=== PATIENT | female | born 1985 | race Caucasian/White ===

== ENCOUNTER 2018-06-11 22:50 | Inpatient (IN) | payer OTHER ==
[~2018-06-11] VITALS: Ht 147.3 cm; Wt 81.5 kg
[~2018-06-11 22:50] MED LIST: CEPH-443 PO
[2018-06-11] MEDS ORDERED: LACTATED RINGER'S 1,000 ML IV PRN (23:32)
[2018-06-11 23:41] VITALS: BP 147/85; PULSE 96; RESP 16
[2018-06-11] MEDS: LACTATED RINGER'S 1,000 ML IV SCH (23:50)
[2018-06-12] MEDS ORDERED: BUTORPHANOL 1 MG INJ IV PRN
[2018-06-12] MEDS ORDERED: BUTORPHANOL 2 MG INJ IV PRN
[2018-06-12] MEDS ORDERED: LIDOCAINE 1% (MPF) 30 ML INJ INJ PRN
[2018-06-12] MEDS ORDERED: AMPICILLIN 2 GM/NS (PMX) 100 ML IV ONE
[2018-06-12] MEDS ORDERED: OXYTOCIN 30 UNITS/LR 500 ML IV SCH ×2
[2018-06-12] MEDS ORDERED: IBUPROFEN 600 MG TAB PO PRN
[2018-06-12] MEDS: LACTATED RINGER'S 1,000 ML IV SCH ×3 (00:44→18:46)
--- NOTE | 2018-06-12 01:46 | TRIAGE ---
OB Triage Datetime Report Generated by CPN: 06/12/2018 01:46 Datetime: 06/12/2018 00:58 Assessment Type: Admission Assessment Maternal Assessment Level of Consciousness: Fully Conscious DTR's/Clonus: DTRs 2+; No Clonus Headache: Denies Blurred Vision: No Respiratory Effort: Unlabored; Regular Rhythm; Equal Expansion Breath Sounds, Left: Clear and Equal Breath Sounds, Right: Clear and Equal Nausea/Vomiting: Denies RUQ Epigastric Pain: Denies Facial Edema: None Fall Risk Assessment History of Falling: (0) No Secondary Diagnosis: (0) No Ambulatory Aid: (0) Bedrest/Nurse Assist Gait: (0) Normal/Bedrest/Immobile Mental Status: (0) Oriented to Own Ability Datetime: 06/12/2018 00:45 Labor Evaluation Frequency: OCCASIONAL Monitor Mode: External Quality: Mild Pattern: Normal: <= 5 Contractions in 10 Minutes Resting Tone [place]: Relaxed Heart Rate FHR Baseline Rate: 145 Monitor Mode: External US FHR Baseline Changes: No Baseline Change Variability: Moderate 6-25 bpm Accelerations: 15X15 Decelerations: None Category: Category I Datetime: 06/11/2018 23:40 Stage of : OB Triage Monitor Mode: External Quality: Mild Pattern: Normal: <= 5 Contractions in 10 Minutes Resting Tone [place]: Relaxed Heart Rate FHR Baseline Rate: 150 Monitor Mode: External US FHR Baseline Changes: No Baseline Change Variability: Moderate 6-25 bpm Accelerations: 15X15 Decelerations: None Category: Category I Datetime: 06/11/2018 23:39 EGA: 38.4 Datetime: 06/11/2018 23:30 Stage of : OB Triage Time of Arrival: 06/11/2018 22:45 Arrived By: Wheelchair Arrived From: Home Chief Complaint: c/o srom at 2215 and irre ucs Movement: Present Contractions: Irregular Time Contractions Began: 06/11/2018 22:15 Contractions: Q5-10 Rupture of Membranes: Ruptured Vaginal Bleeding: None Vaginal Discharge: Present Recent Sexual Intercouse: Denies Abdominal Trauma: Not Applicable Patient Complaints: Contractions Time Provider Notified: 06/11/2018 23:40 Provider Notified: Dr Cantor Initial Plan: EFM,SVE Labor Evaluation Frequency: 5-8 Monitor Mode: External Quality: Mild Pattern: Normal: <= 5 Contractions in 10 Minutes Resting Tone [place]: Relaxed Heart Rate FHR Baseline Rate: 155 Monitor Mode: External US FHR Baseline Changes: No Baseline Change Variability: Moderate 6-25 bpm Accelerations: 15X15 Decelerations: None Category: Category I Vaginal Exam Dilatation (cms): 0.0 Effacement (%): 40 Station: -4 Exam By: Dillon Russell Membrane Status: Ruptured Membranes Rupture Method: Spontaneous Amniotic Fluid Color: Clear Amniotic Fluid Amount: Moderate Amniotic Fluid Odor: Normal Vaginal Bleeding: None Pool: Positive Nitrazine: Positive Cervix, Consistency: Soft Cervix, Position: Midposition Presentation 'A': Unable to Assess Datetime: 06/11/2018 23:04 Stage of : OB Triage Maternal Assessment Level of Consciousness: Fully Conscious DTR's/Clonus: DTRs 2+; No Clonus Headache: Denies Blurred Vision: No Respiratory Effort: Unlabored Nausea/Vomiting: Denies RUQ Epigastric Pain: Denies Facial Edema: None Monitor Mode: External Resting Tone [place]: Relaxed Heart Rate FHR Baseline Rate: 160 Monitor Mode: External US Pain Assessment Pain Scale: 5 Pain Presence: Intermittent Pain Type: Cramping Pain Location: Abdomen
[2018-06-12] MEDS ORDERED: MISOPROSTOL 50 MCG CAPSULE PO SCH (02:00)
--- NOTE | 2018-06-12 02:25 | HP ---
Date/Time of Note Date/Time of Note DATE: 06/12/18 TIME: 02:17 OB - History Hx of Present Free Text/Dictation 32 years old 012 with single intrauterine at 38 weeks and 5 days with a YUNIOR of 06/26/2018 complaining of possible leakage of fluid at 22:15 last night. She states good movement. She denies nausea, vomiting, shortness of breath, chest pain, headache, visual changes, vaginal bleeding. Chief Complaint: Possible leakage of fluid Estimated Due Date: Jun 26, 2018 : 4 Para: 2 Spontaneous : 1 Therapeutic : 0 Care: Good Care Ultrasounds: Normal mid trimester US Obstetrical Complications: None Medical Complications: None Past Family/Social History * Past Medical, Surgical, Family and Obstetric Histories reviewed which are unremarkable GBS Status: Negative OB Admission Exam Vital Signs Vital Signs Vital Signs Date Temp Pulse Resp B/P (MAP) Pulse Ox O2 O2 Flow FiO2 Time Delivery Rate 06/11/18 98.0 96 16 147/85 Room Air 23:41 (105) Physical Exam HEENT: WNL Heart: Rhythm Normal Lungs: Clear Abdomen: WNL Extremities: Normal Cervical Dilatation: None Effacement: 0% Station: -3 Membranes: Ruptured (Speculum exam performed, gush of clear amniotic fluid seen) Amniotic Fluid: Clear Accelerations: Accelerations Present Contractions on Admission: 6-10 Minutes Apart Intensity: Mild Last 72 hours Lab Results CBC & BMP 06/11/18 23:55 Liver Function Test 06/11/18 23:55 Alanine Aminotransferase (ALT/SGPT) 11 L Albumin 3.7 Alkaline Phosphatase 184 H Aspartate Amino Transf (AST/SGOT) 20 Direct Bilirubin 0.00 Total Protein 7.5 OB Assessment/Plan Other plan: 32 years old 4 para 2012 at 38 weeks and 5 days with premature rupture of membrane - FHR: No sign of metabolic acidosis- Category I - Continuous EFM, toco - CBC, blood type and screen - Analgesia options with R/B/A discussed in detail with patient - Epidural per patient request - Cytotec 50 mg every 4 hours p.o. for max 6 doses - Please see the orders - obtain record - GBS: Negative Admission, procedures, expectations, risks and possible complications have been discussed in detail with the patient. Risk of vaginal delivery including but not limited to bleeding, infection, cervical laceration, placental retention, injury to fetus, blood transfusion, blood transfusion related infection, risk of anesthesia, adhesion, cervical laceration, episiotomy/laceration, possible delivery with risk of bleeding, infection, injury to other organs (bowel, bladder, ureter, vessels, nerves), injury to fetus, blood transfusion, blood transfusion related infection, risk of anesthesia, scar and hernia formation, needs for future , removal of uterus or any other indicated surgery discussed with the patient. She expressed understanding and repeats the risks. All of her questions were answered. She signed the informed consent. PHYSICIAN'S VERIFICATION OF INFORMED CONSENT The patient was counseled regarding the procedure, its indications, risks, potential complications and alternatives and any questions were answered. Consent was obtained. PLANNED PROCEDURE/TREATMENT: Vaginal delivery, episiotomy, repair of laceration possible delivery EDMOND NAVARRO Jun 12, 2018 02:25
[2018-06-12] MEDS ORDERED: AMPICILLIN 1 GM/NS (PMX) 50 ML IV SCH (04:00)
[2018-06-12] MEDS ORDERED: MINERAL OIL LIGHT 10 ML VIAL TOP ONE (11:30)
--- NOTE | 2018-06-12 14:39 | LDN ---
Date/Time of Note Date/Time of Note DATE: 06/12/18 TIME: 14:37 Delivery Summary of normal male with x1 relatively tight nuchal cord Weeks of Gestation 38w5d Placenta Delivered: Spontaneously Meconium: none Episiotomy: No Perineal laceration: 0 Anesthesia type: None Estimated blood loss: 200 Sponge & Needle done & correct: Yes All needle counts correct: Yes Any foreign bodies felt in the: No Infant Delivery Information Sex Sex: male Apgars 1 Minute: 8 5 Minute: 9 Suctioning Nose & mouth suctioned at rd: Yes Delee suction performed: Yes Umbilical Cord Umbilical cord with: 3 Vessels Cord presentations: nuchal cord Nuchal cord present X: 1 Cord Blood was obtained: Yes Mother & Baby Disposition Disposition Mom & Baby to Maternity; Good: Yes Mom transferred to: Other Baby to NICU: No () TITUS JAY MD Jun 12, 2018 14:39
[2018-06-12] MEDS ORDERED: MAGNESIUM SULFATE 4 GM/100 ML 100 ML IVPB ONE (15:30)
[2018-06-12] MEDS: MAGNESIUM SULFATE 20 GM/500 ML 500 ML IV SCH (15:52)
[2018-06-12 16:37] VITALS: BP 149/92; PULSE 109; RESP 16
[2018-06-12] MEDS ORDERED: ZOLPIDEM 5 MG TAB PO PRN (17:00)
[2018-06-12] MEDS ORDERED: BENZOCAINE 20% 56 ML SPRAY TOP PRN (17:00)
[2018-06-12] MEDS ORDERED: MISOPROSTOL 200 MCG TAB PR PRN ×2 (17:00)
[2018-06-12] MEDS ORDERED: METHYLERGONOVINE 0.2 MG INJ IM PRN ×2 (17:00)
[2018-06-12] MEDS ORDERED: WITCH HAZEL/GLYCERIN PAD PR PRN (17:00)
[2018-06-12] MEDS ORDERED: OXYTOCIN 30 UNITS/LR 500 ML IV PRN ×2 (17:00)
[2018-06-12] MEDS ORDERED: OXYCODONE/ASPIRIN (4.88/325) TAB PO PRN ×2 (17:00)
[2018-06-12] MEDS ORDERED: LANOLIN HPA 1 PKT TOP PRN (17:00)
[2018-06-12] MEDS ORDERED: CARBOPROST 250 MCG INJ IM PRN ×2 (17:00)
[2018-06-12] MEDS: LABETALOL 100 MG TAB PO SCH (18:00)
[2018-06-12 20:00] VITALS: BP 130/84; PULSE 108; RESP 18
[2018-06-12] MEDS: IBUPROFEN 600 MG TAB PO SCH (20:29)
[2018-06-12 21:00] VITALS: BP 122/72; PULSE 90; RESP 18
[2018-06-12 21:50] VITALS: BP 125/77; PULSE 93; RESP 18
[2018-06-12 22:20] VITALS: BP 142/69; PULSE 92; RESP 18
[2018-06-12 23:25] VITALS: BP 134/77; PULSE 94; RESP 16
[2018-06-13] VITALS (14 sets, daily range): BP systolic 121–137; BP diastolic 66–88; PULSE 80–96; RESP 16–20
[2018-06-13] MEDS: IBUPROFEN 600 MG TAB PO SCH ×4 (00:41→18:00)
[2018-06-13] MEDS: SENNA/DOCUSATE NA (8.6MG/50MG) TAB PO SCH ×3 (00:41→21:13)
[2018-06-13] MEDS: MAGNESIUM SULFATE 20 GM/500 ML 500 ML IV SCH ×3 (01:42→21:30)
[2018-06-13] MEDS: LABETALOL 100 MG TAB PO SCH ×2 (06:28→18:17)
[2018-06-13] MEDS: LACTATED RINGER'S 1,000 ML IV SCH (08:51)
--- NOTE | 2018-06-13 10:40 | PN ---
Date/Time of Note Date/Time of Note DATE: 06/13/18 TIME: 10:39 OB Subjective Subjective Subjective Patient without complaints on magnesium sulfate. OB Objective Objective Objective Gen: NAD Abd: FF OB Assessment/Plan Other Assessment: PPD1 Other plan: -BPs normal, discontinue magnesium sulfate 24 hours -continue routine care -anticipate discharge home tomorrow BALBIR TAPIA Jun 13, 2018 10:40
[2018-06-14] VITALS: BP 123/86; RESP 16
[2018-06-14 04:00] VITALS: BP 115/74; PULSE 82; RESP 16
[2018-06-14] MEDS: LABETALOL 100 MG TAB PO SCH ×2 (06:04→18:14)
[2018-06-14] MEDS: IBUPROFEN 600 MG TAB PO SCH ×4 (06:04→17:56)
[2018-06-14] MEDS: MAGNESIUM SULFATE 20 GM/500 ML 500 ML IV SCH (07:30)
[2018-06-14 08:30] VITALS: BP 137/85; PULSE 85
[2018-06-14 08:46] VITALS: BP 137/85; PULSE 85; RESP 18
[2018-06-14] MEDS ORDERED: DIPHTH/TET/ACEL PERTUSS (ADULT) 0.5 ML VIAL IM* ONE (09:00)
--- NOTE | 2018-06-14 09:01 | PD.PPDC ---
[employer] Discharge Instruction Condition [id number] Patient Condition: [id number] Fair Diet [id number] Diet: Xerek4r Resume Regular Diet Activity/Restrictions [id number] Activity: [id number] Normal Activity May Shower [id number] Restrictions: [id number] No Exercising No Lifting No Driving No Sexual Activity Nothing in the Vagina No [place] No Tampons, douche Follow-up Follow-up with Physician: 3, Week/Weeks Return to clinic for [id number] [employer] Instructions: [id number] Fever greater than 101 Chills Worsening abdominal pain Excessive Vaginal Bleeding More than 2 pads per hour Unable to tolerate diet [id number] OB Instructions: Fexon8o Breast Tenderness Depression Blurried Vision Headache PENNY SPAULDING MD Jun 14, 2018 09:01
--- NOTE | 2018-06-14 09:03 | DS ---
Date/Time of Note Date/Time of Note DATE: 06/14/18 TIME: 09:02 Obstetrical Discharge Record Final Diagnosis Final Diagnosis: Term delivered Vaginal Delivery Obstetrical Delivery: Spontaneous Condition on Discharge Physical Assessment Last Vitals: stable afebrile Voiding: Yes Bowel Movement: Yes Breast: Soft, non-tender, Filling Fundus: Firm Abdomen and Incision: soft nt Calf Tenderness: No Patient Condition: Fair PENNY SPAULDING MD Jun 14, 2018 09:03
[2018-06-14] MEDS ORDERED: INFLUENZA VIRUS VACCINE 0.5 ML (DISPENSING) IM* ONE (10:00)
[2018-06-14] MEDS: LACTATED RINGER'S 1,000 ML IV SCH (10:30)
[2018-06-14] MEDS: SENNA/DOCUSATE NA (8.6MG/50MG) TAB PO SCH (10:49)
[2018-06-14 16:00] VITALS: BP 125/81; PULSE 92; RESP 20
== END 2018-06-14 18:28 | disposition home or self-care (01) | DRG 807 ==
LOC: OBT 22:50 → L-D 22:50 → OBT 23:40 → L-D 06-12 00:43 → PP1 06-12 21:54
PROVIDERS: ADMIT Obstetrics & Gynecology; ATTEND Obstetrics & Gynecology
PROC: 10E0XZZ Delivery of Products of Conception, External Approach (ICD-10-PCS; principal; 2018-06-12)
DX: O42.02 Full-term premature rupture of membranes, onset of labor within 24 hours of rupture (principal); Z37.0 Single live birth; O69.1XX0 Labor and delivery complicated by cord around neck, with compression, not applicable or unspecified; Z3A.38 38 weeks gestation of pregnancy; Z23 Encounter for immunization
CPT/HCPCS: 76815; 80053; 83735; 84560; 85025; 85048; 85610; 85730; 86592; 86850; 86900; 86901; 87340; 90686; 90715; 99464; G0463; J2590; J3475; J7120